=== PATIENT | female | born 1995 | race Two or more races ===

== ENCOUNTER 2020-08-13 18:19 | Inpatient (IN) | payer MEDICAID ==
[~2020-08-13] VITALS: Ht 160 cm; Wt 53.2 kg
[2020-08-13] MEDS ORDERED: ALBU8HFA IH (18:26)
[2020-08-13] MEDS ORDERED: ARIP10TA38 PO (18:27)
[2020-08-13 19:53] LABS: BASOPHILS % (AUTO) 0.3 % (0.0-2.0); EOSINOPHILS % (AUTO) 0.4 % (1.0-6.0); HEMATOCRIT 38.4 % (36-46); HEMOGLOBIN 12.9 g/dL (12.0-16.0); LYMPHOCYTES # (AUTO) 1.9 K/uL (1.0-4.8); LYMPHOCYTES % (AUTO) 21.9 % (22.0-44.0); MEAN CORPUSCULAR HGB CONC 33.5 G/dL (31.0-37.0); MEAN CORPUSCULAR VOLUME 90 fL (80-100); MONOCYTES # (AUTO) 0.4 K/uL (0.1-1.0); NEUTROPHILS # (AUTO) 6.4 K/uL (1.8-7.7); NEUTROPHILS % (AUTO) 72.4 % (40.0-70.0); PLATELET COUNT (AUTO) 331 K/uL (150-450); RED BLOOD CELL COUNT(AUTO) 4.28 MIL/uL (4.00-5.20); RED CELL DISTRIBUTION WIDTH 12.3 % (11.5-14.5)
[2020-08-13 20:02] LABS: ANION GAP 7 mmol/L (8-16); CALCIUM, TOTAL 9.4 mg/dL (8.8-10.5); CARBON DIOXIDE 28 mmol/L (22-29); CHLORIDE 102 mmol/L (98-107); CREATININE 0.79 mg/dL (0.60-1.30); GLOMERULAR FILTR. RATE CALC > 60 mL/min (>60); GLUCOSE,RANDOM 107 mg/dL (70-110); POTASSIUM 3.8 mmol/L (3.5-5.1); SODIUM SERUM 137 mmol/L (136-145); UREA NITROGEN, BLOOD 19 mg/dL (7-18)
[2020-08-13 20:15] LABS: ALANINE AMINOTRANSFERASE 21 U/L (12-78); ALBUMIN 4.2 g/dL (3.4-5.0); ALKALINE PHOSPHATASE 74 U/L (46-116); ASPARTATE AMINOTRANSFERASE 16 U/L (15-37); BILIRUBIN,TOTAL 0.7 mg/dL (0.1-1.0); HCG,QUANTITATIVE < 1 mIU/mL (0-6); TOTAL PROTEIN, SERUM 8.5 g/dL (6.4-8.2)
[2020-08-14] MEDS ORDERED: HALOPERIDOL LACTATE 5 MG/ML VIAL IM ONE (01:15)
[2020-08-14] MEDS ORDERED: DiphenhydrAMINE HCL 50 MG/ML VIAL IM ONE (01:15)
[2020-08-14] MEDS ORDERED: LORazepam 2 MG/ML VIAL IM ONE (01:15)
[2020-08-14 04:18] LABS: COVID AG,FIA SOURCE NASOPHARYNGEAL
[2020-08-14] MEDS ORDERED: ACETAMINOPHEN 325 MG TABLET PO PRN (07:45)
[2020-08-14] MEDS ORDERED: MAGNESIUM HYDROXIDE SUSPENSION 30 ML UDCUP PO PRN (07:45)
[2020-08-14] MEDS ORDERED: ALBUTEROL SULFATE HFA 90 MCG/PUFF 8 GM INHALER IH PRN (07:45)
[2020-08-14] MEDS ORDERED: ONDANSETRON HCL 4 MG TABLET PO PRN (07:45)
[2020-08-14] MEDS ORDERED: DOCUSATE SODIUM 100 MG CAPSULE PO PRN (07:45)
[2020-08-14] MEDS ORDERED: LOPERAMIDE HCL 2 MG CAPSULE PO PRN (07:45)
[2020-08-14] MEDS ORDERED: MAG HYDROX/AL HYDROX/SIMETH ES 30 ML SUSPENSION UDCUP PO PRN (07:45)
[2020-08-14] MEDS ORDERED: CloNIDine HCL 0.1 MG TABLET PO PRN (07:45)
[2020-08-14] MEDS ORDERED: NICOTINE 14 MG/24 HOUR PATCH TD PRN (07:45)
[2020-08-14] MEDS ORDERED: GuaiFENesin/D-METHORPHAN [SUGAR-FREE] 200-20MG/10 ML SYRUP UDCUP PO PRN (07:45)
[2020-08-14] MEDS ORDERED: IBUPROFEN 400 MG TABLET PO PRN (07:45)
[2020-08-14 10:00] VITALS: BP 98/63
[2020-08-14 10:17] VITALS: BP 98/63
[2020-08-14 16:22] VITALS: BP 105/72
[2020-08-14] MEDS: LORazepam 2 MG TABLET PO PRN (17:08)
[2020-08-15 04:37] VITALS: BP 105/70
[2020-08-15 08:34] VITALS: BP 110/74
[2020-08-15] MEDS: ARIPiprazole 10 MG TABLET PO SCH (11:00)
[2020-08-15 16:05] VITALS: BP 105/58
[2020-08-16 00:20] VITALS: BP 129/85
[2020-08-16] MEDS: ZOLPIDEM TARTRATE 10 MG TABLET PO PRN (00:24)
[2020-08-16] MEDS: LORazepam 2 MG TABLET PO PRN ×2 (00:24→18:19)
[2020-08-16 08:23] VITALS: BP 123/85
[2020-08-16] MEDS: ARIPiprazole 10 MG TABLET PO SCH (09:00)
[2020-08-16] MEDS: THIAMINE 100 MG TABLET PO SCH (09:00)
[2020-08-16] MEDS: MULTIVITAMINS WITH MINERALS, THERAPEUTIC TABLET PO SCH (09:00)
[2020-08-16] MEDS ORDERED: ARIPiprazole 10 MG TABLET PO SCH (11:00)
[2020-08-16 16:10] VITALS: BP 138/60
[2020-08-17 01:32] VITALS: BP 139/81
[2020-08-17] MEDS: ARIPiprazole 10 MG TABLET PO SCH (08:19)
[2020-08-17] MEDS: THIAMINE 100 MG TABLET PO SCH (08:20)
[2020-08-17] MEDS: MULTIVITAMINS WITH MINERALS, THERAPEUTIC TABLET PO SCH (08:20)
[2020-08-17 08:38] VITALS: BP 106/70
[2020-08-17 16:14] VITALS: BP 138/69
[2020-08-18 01:28] VITALS: BP 117/76
[2020-08-18 08:10] VITALS: BP 109/80
[2020-08-18] MEDS: ARIPiprazole 10 MG TABLET PO SCH (08:11)
[2020-08-18] MEDS: MULTIVITAMINS WITH MINERALS, THERAPEUTIC TABLET PO SCH (08:12)
[2020-08-18] MEDS: THIAMINE 100 MG TABLET PO SCH (08:12)
[2020-08-18 16:02] VITALS: BP 120/74
[2020-08-19] VITALS: BP 116/51
[2020-08-19 08:04] VITALS: BP 110/66
[2020-08-19 08:23] LABS: COVID AG,FIA SOURCE NASOPHARYNGEAL
[2020-08-19] MEDS: THIAMINE 100 MG TABLET PO SCH (09:00)
[2020-08-19] MEDS: ARIPiprazole 10 MG TABLET PO SCH ×2 (09:00→12:05)
[2020-08-19] MEDS: MULTIVITAMINS WITH MINERALS, THERAPEUTIC TABLET PO SCH (10:09)
[2020-08-19] MEDS: LORazepam 2 MG TABLET PO PRN (12:02)
[2020-08-19 16:05] VITALS: BP 109/66
[2020-08-20] VITALS: BP 110/67
[2020-08-20 08:18] VITALS: BP 109/73
[2020-08-20] MEDS: THIAMINE 100 MG TABLET PO SCH ×2 (09:00→09:26)
[2020-08-20] MEDS: ARIPiprazole 10 MG TABLET PO SCH ×2 (09:00→09:26)
[2020-08-20] MEDS: MULTIVITAMINS WITH MINERALS, THERAPEUTIC TABLET PO SCH ×2 (09:00→09:26)
[2020-08-20 16:10] VITALS: BP 110/83
[2020-08-21 00:46] VITALS: BP 110/80
[2020-08-21] MEDS: LORazepam 2 MG TABLET PO PRN (00:55)
[2020-08-21] MEDS: ZOLPIDEM TARTRATE 10 MG TABLET PO PRN (00:55)
[2020-08-21 08:29] VITALS: BP 108/74
[2020-08-21] MEDS: ARIPiprazole 10 MG TABLET PO SCH (09:00)
[2020-08-21] MEDS: THIAMINE 100 MG TABLET PO SCH (09:00)
[2020-08-21] MEDS: MULTIVITAMINS WITH MINERALS, THERAPEUTIC TABLET PO SCH (09:00)
[2020-08-21 16:26] VITALS: BP 100/60
[2020-08-22 02:01] VITALS: BP 111/62
[2020-08-22] MEDS: LORazepam 2 MG TABLET PO PRN (02:10)
[2020-08-22 08:13] LABS: BASOPHILS % (AUTO) 0.2 % (0.0-2.0); EOSINOPHILS % (AUTO) 1.8 % (1.0-6.0); HEMATOCRIT 39.1 % (36-46); LYMPHOCYTES # (AUTO) 1.8 K/uL (1.0-4.8); LYMPHOCYTES % (AUTO) 23.8 % (22.0-44.0); MEAN CORPUSCULAR HGB CONC 33.2 G/dL (31.0-37.0); MEAN CORPUSCULAR VOLUME 90 fL (80-100); MONOCYTES # (AUTO) 0.4 K/uL (0.1-1.0); MONOCYTES % (AUTO) 5.3 % (2.0-9.0); NEUTROPHILS # (AUTO) 5.3 K/uL (1.8-7.7); NEUTROPHILS % (AUTO) 68.9 % (40.0-70.0); PLATELET COUNT (AUTO) 319 K/uL (150-450); RED BLOOD CELL COUNT(AUTO) 4.32 MIL/uL (4.00-5.20); RED CELL DISTRIBUTION WIDTH 12.5 % (11.5-14.5)
[2020-08-22 08:15] VITALS: BP 108/70
[2020-08-22 08:38] LABS: CHOL/HDL RATIO 2.3 (3.9-5.7); FREE T4 (FREE THYROXINE) 1.37 ng/dL (0.76-1.46); MAGNESIUM 2.1 mg/dL (1.80-2.40); PHOSPHORUS 4.5 mg/dL (2.5-4.9); THYROID STIMULATING HORMONE 1.99 uIU/mL (0.36-3.74)
[2020-08-22 08:40] LABS: HEMOGLOBIN A1C 5.1 % (3.8-5.6)
[2020-08-22] MEDS: THIAMINE 100 MG TABLET PO SCH (09:00)
[2020-08-22] MEDS: MULTIVITAMINS WITH MINERALS, THERAPEUTIC TABLET PO SCH (09:00)
[2020-08-22] MEDS: ARIPiprazole 10 MG TABLET PO SCH (09:51)
[2020-08-22 16:19] VITALS: BP 109/74
[2020-08-23 04:13] VITALS: BP 123/82
[2020-08-23 08:09] VITALS: BP 112/84
[2020-08-23] MEDS: ARIPiprazole 10 MG TABLET PO SCH (09:00)
[2020-08-23] MEDS: MULTIVITAMINS WITH MINERALS, THERAPEUTIC TABLET PO SCH (09:00)
[2020-08-23] MEDS: THIAMINE 100 MG TABLET PO SCH (09:00)
[2020-08-23 16:08] VITALS: BP 118/69
[2020-08-24 08:10] VITALS: BP 116/78
[2020-08-24] MEDS: LORazepam 2 MG TABLET PO PRN (08:50)
[2020-08-24] MEDS: THIAMINE 100 MG TABLET PO SCH (08:50)
[2020-08-24] MEDS: MULTIVITAMINS WITH MINERALS, THERAPEUTIC TABLET PO SCH (08:54)
[2020-08-24] MEDS: ARIPiprazole 10 MG TABLET PO SCH (08:54)
[2020-08-24 16:20] VITALS: BP 101/69
[2020-08-25 00:16] VITALS: BP 111/65
[2020-08-25 07:25] LABS: APPEARANCE,URINE CLEAR (CLEAR); BILIRUBIN,URINE NEGATIVE (NEGATIVE); GLUCOSE, URINE (UA) NEGATIVE (NEGATIVE); KETONES,URINE >=80 mg/dL (NEGATIVE); LEUKOCYTE ESTERASE ,URINE NEGATIVE (NEGATIVE); NITRATE,URINE NEGATIVE (NEGATIVE); OCCULT BLOOD,URINE SMALL (NEGATIVE); PROTEIN,URINE TRACE (NEGATIVE); UROBILINOGEN,URINE 0.2 mg/dL (<=1.0)
[2020-08-25 07:46] LABS: SQUAMOUS EPITHELIAL CELL,UR Rare /LPF (None Seen)
[2020-08-25 07:47] LABS: WBC,URINE 0-2 /HPF (0-5)
[2020-08-25 07:48] LABS: BACTERIA,URINE None Seen /HPF (None Seen); CALCIUM OXALATE CRYSTALS,UR Few /LPF (None Seen)
[2020-08-25] MEDS: THIAMINE 100 MG TABLET PO SCH ×2 (08:30→09:00)
[2020-08-25] MEDS: ARIPiprazole 10 MG TABLET PO SCH ×2 (08:30→09:00)
[2020-08-25] MEDS: MULTIVITAMINS WITH MINERALS, THERAPEUTIC TABLET PO SCH ×2 (08:30→09:00)
[2020-08-25 10:01] VITALS: BP 114/62
[2020-08-25 16:14] VITALS: BP 118/68
[2020-08-26 00:23] VITALS: BP 103/74
[2020-08-26 07:51] LABS: COVID AG,FIA SOURCE NASOPHARYNGEAL
[2020-08-26 08:05] VITALS: BP 102/65
[2020-08-26] MEDS: MULTIVITAMINS WITH MINERALS, THERAPEUTIC TABLET PO SCH (09:00)
[2020-08-26] MEDS: ARIPiprazole 10 MG TABLET PO SCH (09:00)
[2020-08-26] MEDS: THIAMINE 100 MG TABLET PO SCH (09:00)
[2020-08-26 16:18] VITALS: BP 131/85
[2020-08-27 01:55] VITALS: BP 121/82
[2020-08-27 08:40] VITALS: BP_SYST 120
[2020-08-27] MEDS: ARIPiprazole 10 MG TABLET PO SCH (08:40)
[2020-08-27] MEDS: THIAMINE 100 MG TABLET PO SCH (08:41)
[2020-08-27] MEDS: MEGESTROL ACETATE 400 MG/10 ML SUSPENSION UDCUP PO SCH (08:41)
[2020-08-27] MEDS: MULTIVITAMINS WITH MINERALS, THERAPEUTIC TABLET PO SCH (08:41)
[2020-08-27 16:14] VITALS: BP 127/86
[2020-08-28 01:37] VITALS: BP 118/82
[2020-08-28] MEDS: ZOLPIDEM TARTRATE 10 MG TABLET PO PRN (02:46)
[2020-08-28] MEDS: LORazepam 2 MG TABLET PO PRN ×3 (04:09→19:28)
[2020-08-28 08:05] VITALS: BP 101/68
[2020-08-28] MEDS: MULTIVITAMINS WITH MINERALS, THERAPEUTIC TABLET PO SCH (09:00)
[2020-08-28] MEDS: THIAMINE 100 MG TABLET PO SCH (09:00)
[2020-08-28] MEDS: ARIPiprazole 10 MG TABLET PO SCH (09:21)
[2020-08-28] MEDS: MEGESTROL ACETATE 400 MG/10 ML SUSPENSION UDCUP PO SCH (09:21)
[2020-08-28 16:10] VITALS: BP 100/82
[2020-08-29 06:43] VITALS: BP 108/77
[2020-08-29 08:11] VITALS: BP 107/69
[2020-08-29] MEDS: MULTIVITAMINS WITH MINERALS, THERAPEUTIC TABLET PO SCH (09:00)
[2020-08-29] MEDS: THIAMINE 100 MG TABLET PO SCH (09:00)
[2020-08-29] MEDS: ARIPiprazole 10 MG TABLET PO SCH (09:00)
[2020-08-29] MEDS: MEGESTROL ACETATE 400 MG/10 ML SUSPENSION UDCUP PO SCH (09:00)
[2020-08-29 16:10] VITALS: BP 114/65
[2020-08-29] MEDS: LORazepam 2 MG TABLET PO PRN (22:48)
[2020-08-30 06:29] VITALS: BP 102/65
[2020-08-30 08:25] VITALS: BP 103/60
[2020-08-30] MEDS: ARIPiprazole 10 MG TABLET PO SCH (08:51)
[2020-08-30] MEDS: MULTIVITAMINS WITH MINERALS, THERAPEUTIC TABLET PO SCH (09:00)
[2020-08-30] MEDS: THIAMINE 100 MG TABLET PO SCH (09:00)
[2020-08-30] MEDS: MEGESTROL ACETATE 400 MG/10 ML SUSPENSION UDCUP PO SCH (09:00)
[2020-08-30] MEDS: PETROLATUM,WHITE 28 GM JELLY TP PRN (13:40)
[2020-08-30 16:21] VITALS: BP 104/72
[2020-08-30] MEDS: LORazepam 2 MG TABLET PO PRN (20:37)
[2020-08-31 01:14] VITALS: BP 114/67
[2020-08-31 08:15] VITALS: BP 118/73
[2020-08-31 08:29] LABS: APPEARANCE,URINE TURBID (CLEAR); GLUCOSE, URINE (UA) NEGATIVE (NEGATIVE); KETONES,URINE TRACE mg/dL (NEGATIVE); NITRATE,URINE NEGATIVE (NEGATIVE); OCCULT BLOOD,URINE NEGATIVE (NEGATIVE); PH,URINE 5.5 (5.0-8.0); PROTEIN,URINE NEGATIVE (NEGATIVE); UROBILINOGEN,URINE 0.2 mg/dL (<=1.0)
[2020-08-31 08:38] LABS: BILIRUBIN,URINE PRELIM. POSITIVE (NEGATIVE)
[2020-08-31 08:39] LABS: BACTERIA,URINE None Seen /HPF (None Seen); LEUKOCYTE ESTERASE ,URINE SMALL (NEGATIVE); RBC,URINE None Seen /HPF (0-2)
[2020-08-31 08:40] LABS: AMORPHOUS SEDIMENT,UR Many /LPF (None Seen); CALCIUM OXALATE CRYSTALS,UR Rare /LPF (None Seen); SQUAMOUS EPITHELIAL CELL,UR Moderate /LPF (None Seen)
[2020-08-31] MEDS: MULTIVITAMINS WITH MINERALS, THERAPEUTIC TABLET PO SCH (09:00)
[2020-08-31] MEDS: THIAMINE 100 MG TABLET PO SCH (09:06)
[2020-08-31] MEDS: ARIPiprazole 10 MG TABLET PO SCH (09:06)
[2020-08-31] MEDS: MEGESTROL ACETATE 400 MG/10 ML SUSPENSION UDCUP PO SCH (09:06)
[2020-08-31] MEDS: CEPHALEXIN MONOHYDRATE 250 MG CAPSULE PO SCH ×2 (12:16→17:41)
[2020-08-31 16:20] VITALS: BP 110/74
[2020-09-01 06:18] VITALS: BP 123/88
[2020-09-01 07:51] LABS: BASOPHILS % (AUTO) 0.1 % (0.0-2.0); EOSINOPHILS % (AUTO) 1.8 % (1.0-6.0); HEMATOCRIT 38.2 % (36-46); HEMOGLOBIN 12.4 g/dL (12.0-16.0); LYMPHOCYTES # (AUTO) 2.2 K/uL (1.0-4.8); LYMPHOCYTES % (AUTO) 25.2 % (22.0-44.0); MEAN CORPUSCULAR HEMOGLOBIN 29.7 pg (26.0-34.0); MEAN CORPUSCULAR HGB CONC 32.6 G/dL (31.0-37.0); MEAN CORPUSCULAR VOLUME 91 fL (80-100); MONOCYTES # (AUTO) 0.5 K/uL (0.1-1.0); MONOCYTES % (AUTO) 6.3 % (2.0-9.0); NEUTROPHILS # (AUTO) 5.7 K/uL (1.8-7.7); NEUTROPHILS % (AUTO) 66.6 % (40.0-70.0); PLATELET COUNT (AUTO) 239 K/uL (150-450); RED BLOOD CELL COUNT(AUTO) 4.19 MIL/uL (4.00-5.20); RED CELL DISTRIBUTION WIDTH 12.3 % (11.5-14.5)
[2020-09-01 08:03] LABS: COVID AG,FIA SOURCE NASOPHARYNGEAL
[2020-09-01 08:10] LABS: ANION GAP 7 mmol/L (8-16); CALCIUM, TOTAL 8.6 mg/dL (8.8-10.5); CARBON DIOXIDE 27 mmol/L (22-29); CHLORIDE 105 mmol/L (98-107); CREATININE 0.61 mg/dL (0.60-1.30); GLOMERULAR FILTR. RATE CALC > 60 mL/min (>60); GLUCOSE,RANDOM 88 mg/dL (70-110); PHOSPHORUS 3.3 mg/dL (2.5-4.9); POTASSIUM 3.8 mmol/L (3.5-5.1); SODIUM SERUM 139 mmol/L (136-145); UREA NITROGEN, BLOOD 13 mg/dL (7-18)
[2020-09-01 08:20] VITALS: BP 121/76
[2020-09-01] MEDS: CEPHALEXIN MONOHYDRATE 250 MG CAPSULE PO SCH ×3 (08:47→17:19)
[2020-09-01] MEDS: MEGESTROL ACETATE 400 MG/10 ML SUSPENSION UDCUP PO SCH (08:47)
[2020-09-01] MEDS: ARIPiprazole 10 MG TABLET PO SCH (08:47)
[2020-09-01] MEDS: MULTIVITAMINS WITH MINERALS, THERAPEUTIC TABLET PO SCH (08:56)
[2020-09-01] MEDS: THIAMINE 100 MG TABLET PO SCH (08:56)
[2020-09-01 16:15] VITALS: BP 103/69
[2020-09-02 00:30] VITALS: BP 112/62
[2020-09-02 08:13] VITALS: BP 106/70
[2020-09-02] MEDS: CEPHALEXIN MONOHYDRATE 250 MG CAPSULE PO SCH ×3 (09:17→16:58)
[2020-09-02] MEDS: MULTIVITAMINS WITH MINERALS, THERAPEUTIC TABLET PO SCH (09:17)
[2020-09-02] MEDS: MEGESTROL ACETATE 400 MG/10 ML SUSPENSION UDCUP PO SCH (09:17)
[2020-09-02] MEDS: THIAMINE 100 MG TABLET PO SCH (09:17)
[2020-09-02] MEDS: ARIPiprazole 10 MG TABLET PO SCH (09:17)
[2020-09-02 16:27] VITALS: BP 130/87
[2020-09-03] MEDS: ZOLPIDEM TARTRATE 10 MG TABLET PO PRN (00:22)
[2020-09-03 05:23] VITALS: BP 122/73
[2020-09-03 08:16] VITALS: BP 101/71
[2020-09-03] MEDS: MULTIVITAMINS WITH MINERALS, THERAPEUTIC TABLET PO SCH (08:38)
[2020-09-03] MEDS: THIAMINE 100 MG TABLET PO SCH (08:38)
[2020-09-03] MEDS: MEGESTROL ACETATE 400 MG/10 ML SUSPENSION UDCUP PO SCH (08:38)
[2020-09-03] MEDS: ARIPiprazole 10 MG TABLET PO SCH (08:38)
[2020-09-03] MEDS: CEPHALEXIN MONOHYDRATE 250 MG CAPSULE PO SCH ×3 (08:38→16:05)
[2020-09-03 16:39] VITALS: BP 112/64
[2020-09-04 00:18] VITALS: BP 123/72
[2020-09-04] MEDS: ARIPiprazole 10 MG TABLET PO SCH (08:47)
[2020-09-04] MEDS: MULTIVITAMINS WITH MINERALS, THERAPEUTIC TABLET PO SCH (08:47)
[2020-09-04] MEDS: THIAMINE 100 MG TABLET PO SCH (08:47)
[2020-09-04 09:33] VITALS: BP 137/94
[2020-09-04] MEDS: CEPHALEXIN MONOHYDRATE 250 MG CAPSULE PO SCH ×3 (09:39→16:56)
[2020-09-04] MEDS: MEGESTROL ACETATE 400 MG/10 ML SUSPENSION UDCUP PO SCH (09:39)
[2020-09-04 16:35] VITALS: BP 118/82
[2020-09-04] MEDS: ZOLPIDEM TARTRATE 10 MG TABLET PO PRN (20:30)
[2020-09-05 05:13] VITALS: BP 122/74
[2020-09-05] MEDS: MULTIVITAMINS WITH MINERALS, THERAPEUTIC TABLET PO SCH (08:05)
[2020-09-05] MEDS: CEPHALEXIN MONOHYDRATE 250 MG CAPSULE PO SCH (08:05)
[2020-09-05] MEDS: ARIPiprazole 10 MG TABLET PO SCH (08:06)
[2020-09-05] MEDS: THIAMINE 100 MG TABLET PO SCH (08:06)
[2020-09-05] MEDS: MEGESTROL ACETATE 400 MG/10 ML SUSPENSION UDCUP PO SCH (08:06)
[2020-09-05 08:33] VITALS: BP 106/69
[2020-09-05 20:07] VITALS: BP 121/73
[2020-09-06 00:37] VITALS: BP 123/74
[2020-09-06] MEDS: MEGESTROL ACETATE 400 MG/10 ML SUSPENSION UDCUP PO SCH (08:04)
[2020-09-06] MEDS: ARIPiprazole 10 MG TABLET PO SCH (08:04)
[2020-09-06 08:20] VITALS: BP 140/73
[2020-09-06] MEDS: MULTIVITAMINS WITH MINERALS, THERAPEUTIC TABLET PO SCH (09:00)
[2020-09-06] MEDS: THIAMINE 100 MG TABLET PO SCH (09:00)
[2020-09-06 16:16] VITALS: BP 123/83
[2020-09-07 00:48] VITALS: BP 120/75
[2020-09-07 08:11] VITALS: BP 123/78
[2020-09-07] MEDS: THIAMINE 100 MG TABLET PO SCH (08:55)
[2020-09-07] MEDS: ARIPiprazole 10 MG TABLET PO SCH (08:55)
[2020-09-07] MEDS: MULTIVITAMINS WITH MINERALS, THERAPEUTIC TABLET PO SCH (08:55)
[2020-09-07] MEDS: MEGESTROL ACETATE 400 MG/10 ML SUSPENSION UDCUP PO SCH (08:56)
[2020-09-07 16:52] VITALS: BP 119/84
[2020-09-07] MEDS: ZOLPIDEM TARTRATE 10 MG TABLET PO PRN (23:04)
[2020-09-08 00:33] VITALS: BP 117/66
[2020-09-08 07:40] LABS: COVID AG,FIA SOURCE NASOPHARYNGEAL
[2020-09-08 08:00] VITALS: BP 119/69
[2020-09-08] MEDS: MEGESTROL ACETATE 400 MG/10 ML SUSPENSION UDCUP PO SCH (08:50)
[2020-09-08] MEDS: ARIPiprazole 10 MG TABLET PO SCH (08:51)
[2020-09-08] MEDS: MULTIVITAMINS WITH MINERALS, THERAPEUTIC TABLET PO SCH (09:00)
[2020-09-08] MEDS: THIAMINE 100 MG TABLET PO SCH (09:00)
[2020-09-08 16:12] VITALS: BP 134/80
[2020-09-08] MEDS: ZOLPIDEM TARTRATE 10 MG TABLET PO PRN (20:30)
[2020-09-09 00:14] VITALS: BP 120/83
[2020-09-09 08:07] VITALS: BP 115/72
[2020-09-09] MEDS: MEGESTROL ACETATE 400 MG/10 ML SUSPENSION UDCUP PO SCH (08:51)
[2020-09-09] MEDS: ARIPiprazole 10 MG TABLET PO SCH (08:51)
[2020-09-09] MEDS: THIAMINE 100 MG TABLET PO SCH ×2 (08:51→09:00)
[2020-09-09] MEDS: MULTIVITAMINS WITH MINERALS, THERAPEUTIC TABLET PO SCH (08:51)
[2020-09-09 16:19] VITALS: BP 137/90
[2020-09-09] MEDS: ZOLPIDEM TARTRATE 10 MG TABLET PO PRN (20:52)
[2020-09-10 02:17] VITALS: BP 124/76
[2020-09-10] MEDS: LORazepam 2 MG TABLET PO PRN ×2 (02:29→16:43)
[2020-09-10] MEDS: HALOPERIDOL 5 MG TABLET PO PRN ×2 (04:15→16:43)
[2020-09-10] MEDS: MULTIVITAMINS WITH MINERALS, THERAPEUTIC TABLET PO SCH (09:00)
[2020-09-10] MEDS: THIAMINE 100 MG TABLET PO SCH (09:00)
[2020-09-10] MEDS: ARIPiprazole 10 MG TABLET PO SCH (09:17)
[2020-09-10] MEDS: MEGESTROL ACETATE 400 MG/10 ML SUSPENSION UDCUP PO SCH (09:18)
[2020-09-10 10:41] VITALS: BP 111/64
[2020-09-10 16:35] VITALS: BP 130/72
[2020-09-11 06:24] VITALS: BP 91/60
[2020-09-11 08:45] VITALS: BP 122/77
[2020-09-11] MEDS: MULTIVITAMINS WITH MINERALS, THERAPEUTIC TABLET PO SCH (09:22)
[2020-09-11] MEDS: MEGESTROL ACETATE 400 MG/10 ML SUSPENSION UDCUP PO SCH (09:22)
[2020-09-11] MEDS: THIAMINE 100 MG TABLET PO SCH (09:22)
[2020-09-11] MEDS: ARIPiprazole 10 MG TABLET PO SCH (09:22)
[2020-09-11 16:15] VITALS: BP 116/74
[2020-09-12 00:54] VITALS: BP 122/67
[2020-09-12] MEDS: THIAMINE 100 MG TABLET PO SCH (08:08)
[2020-09-12] MEDS: ARIPiprazole 10 MG TABLET PO SCH (08:08)
[2020-09-12] MEDS: MULTIVITAMINS WITH MINERALS, THERAPEUTIC TABLET PO SCH (08:08)
[2020-09-12] MEDS: MEGESTROL ACETATE 400 MG/10 ML SUSPENSION UDCUP PO SCH (08:09)
[2020-09-12 08:23] VITALS: BP 109/69
[2020-09-12 16:28] VITALS: BP 114/81
[2020-09-12] MEDS: ZOLPIDEM TARTRATE 10 MG TABLET PO PRN (20:48)
[2020-09-13 01:01] VITALS: BP 117/68
[2020-09-13] MEDS: MULTIVITAMINS WITH MINERALS, THERAPEUTIC TABLET PO SCH (08:10)
[2020-09-13] MEDS: ARIPiprazole 10 MG TABLET PO SCH (08:10)
[2020-09-13] MEDS: THIAMINE 100 MG TABLET PO SCH (08:10)
[2020-09-13 08:29] VITALS: BP 109/73
[2020-09-13] MEDS: MEGESTROL ACETATE 400 MG/10 ML SUSPENSION UDCUP PO SCH (09:00)
[2020-09-13 16:03] VITALS: BP 124/76
[2020-09-14 01:48] VITALS: BP 119/70
[2020-09-14 08:15] VITALS: BP 114/66
[2020-09-14] MEDS: MULTIVITAMINS WITH MINERALS, THERAPEUTIC TABLET PO SCH (09:37)
[2020-09-14] MEDS: MEGESTROL ACETATE 400 MG/10 ML SUSPENSION UDCUP PO SCH (09:38)
[2020-09-14] MEDS: ARIPiprazole 10 MG TABLET PO SCH (09:38)
[2020-09-14] MEDS: THIAMINE 100 MG TABLET PO SCH (09:38)
[2020-09-14 16:04] VITALS: BP 114/75
[2020-09-14] MEDS: ZOLPIDEM TARTRATE 10 MG TABLET PO PRN (21:01)
[2020-09-15 01:42] VITALS: BP 110/68
[2020-09-15] MEDS: ARIPiprazole 10 MG TABLET PO SCH (08:27)
[2020-09-15] MEDS: MEGESTROL ACETATE 400 MG/10 ML SUSPENSION UDCUP PO SCH (08:28)
[2020-09-15] MEDS: MULTIVITAMINS WITH MINERALS, THERAPEUTIC TABLET PO SCH (08:34)
[2020-09-15] MEDS: THIAMINE 100 MG TABLET PO SCH (08:35)
[2020-09-15 09:01] VITALS: BP 113/74
[2020-09-15 16:06] VITALS: BP 105/70
[2020-09-16 01:24] VITALS: BP 111/74
[2020-09-16 08:07] VITALS: BP 112/72
[2020-09-16] MEDS: THIAMINE 100 MG TABLET PO SCH (09:56)
[2020-09-16] MEDS: ARIPiprazole 10 MG TABLET PO SCH (09:56)
[2020-09-16] MEDS: MEGESTROL ACETATE 400 MG/10 ML SUSPENSION UDCUP PO SCH (09:56)
[2020-09-16] MEDS: MULTIVITAMINS WITH MINERALS, THERAPEUTIC TABLET PO SCH (09:56)
[2020-09-16 16:06] VITALS: BP 111/76
[2020-09-17 00:32] VITALS: BP 110/73
[2020-09-17 08:09] VITALS: BP 121/72
[2020-09-17] MEDS: ARIPiprazole 10 MG TABLET PO SCH (09:26)
[2020-09-17] MEDS: MULTIVITAMINS WITH MINERALS, THERAPEUTIC TABLET PO SCH (09:26)
[2020-09-17] MEDS: THIAMINE 100 MG TABLET PO SCH (09:26)
[2020-09-17] MEDS: MEGESTROL ACETATE 400 MG/10 ML SUSPENSION UDCUP PO SCH (09:26)
[2020-09-17 10:30] LABS: COVID AG,FIA SOURCE NASOPHARYNGEAL
[2020-09-17 16:07] VITALS: BP 110/64
[2020-09-18 00:55] VITALS: BP 113/68
[2020-09-18] MEDS: MEGESTROL ACETATE 400 MG/10 ML SUSPENSION UDCUP PO SCH (08:06)
[2020-09-18] MEDS: ARIPiprazole 10 MG TABLET PO SCH (08:06)
[2020-09-18] MEDS: THIAMINE 100 MG TABLET PO SCH (08:06)
[2020-09-18] MEDS: MULTIVITAMINS WITH MINERALS, THERAPEUTIC TABLET PO SCH (08:10)
[2020-09-18 08:15] VITALS: BP 125/77
[2020-09-18 16:09] VITALS: BP 110/73
[2020-09-18] MEDS: ZOLPIDEM TARTRATE 10 MG TABLET PO PRN (20:55)
[2020-09-19 00:52] VITALS: BP 123/72
[2020-09-19 08:26] VITALS: BP 119/73
[2020-09-19] MEDS: MEGESTROL ACETATE 400 MG/10 ML SUSPENSION UDCUP PO SCH (09:34)
[2020-09-19] MEDS: THIAMINE 100 MG TABLET PO SCH (09:34)
[2020-09-19] MEDS: MULTIVITAMINS WITH MINERALS, THERAPEUTIC TABLET PO SCH (09:34)
[2020-09-19] MEDS: ARIPiprazole 10 MG TABLET PO SCH (09:34)
[2020-09-19 16:13] VITALS: BP 115/68
[2020-09-20] MEDS: ZOLPIDEM TARTRATE 10 MG TABLET PO PRN ×2 (00:55→23:12)
[2020-09-20 01:28] VITALS: BP 125/75
[2020-09-20 08:05] VITALS: BP 109/72
[2020-09-20] MEDS: MULTIVITAMINS WITH MINERALS, THERAPEUTIC TABLET PO SCH (09:00)
[2020-09-20] MEDS: ARIPiprazole 10 MG TABLET PO SCH (09:00)
[2020-09-20] MEDS: MEGESTROL ACETATE 400 MG/10 ML SUSPENSION UDCUP PO SCH (09:00)
[2020-09-20] MEDS: THIAMINE 100 MG TABLET PO SCH (09:00)
[2020-09-20 16:03] VITALS: BP 116/76
[2020-09-21 01:00] VITALS: BP 125/79
[2020-09-21 08:40] VITALS: BP 111/72
[2020-09-21] MEDS: ARIPiprazole 10 MG TABLET PO SCH (09:32)
[2020-09-21] MEDS: MULTIVITAMINS WITH MINERALS, THERAPEUTIC TABLET PO SCH (09:32)
[2020-09-21] MEDS: THIAMINE 100 MG TABLET PO SCH (09:32)
[2020-09-21] MEDS: MEGESTROL ACETATE 400 MG/10 ML SUSPENSION UDCUP PO SCH (09:33)
[2020-09-21] MEDS: PETROLATUM,WHITE 28 GM JELLY TP PRN (14:43)
[2020-09-21 16:07] VITALS: BP 109/65
[2020-09-21] MEDS: ZOLPIDEM TARTRATE 10 MG TABLET PO PRN (21:01)
[2020-09-21] MEDS: LORazepam 2 MG TABLET PO PRN (23:40)
[2020-09-22 00:08] VITALS: BP 119/65
[2020-09-22 08:14] VITALS: BP 128/76
[2020-09-22] MEDS: MULTIVITAMINS WITH MINERALS, THERAPEUTIC TABLET PO SCH (09:34)
[2020-09-22] MEDS: THIAMINE 100 MG TABLET PO SCH (09:34)
[2020-09-22] MEDS: ARIPiprazole 10 MG TABLET PO SCH (09:34)
[2020-09-22] MEDS: MEGESTROL ACETATE 400 MG/10 ML SUSPENSION UDCUP PO SCH (09:34)
[2020-09-22 16:08] VITALS: BP 106/70
[2020-09-23 00:07] VITALS: BP 112/72
[2020-09-23 07:21] LABS: COVID AG,FIA SOURCE NASOPHARYNGEAL
[2020-09-23 08:19] VITALS: BP 109/73
[2020-09-23] MEDS: MEGESTROL ACETATE 400 MG/10 ML SUSPENSION UDCUP PO SCH (08:44)
[2020-09-23] MEDS: ARIPiprazole 10 MG TABLET PO SCH (08:45)
[2020-09-23] MEDS: THIAMINE 100 MG TABLET PO SCH (08:49)
[2020-09-23] MEDS: MULTIVITAMINS WITH MINERALS, THERAPEUTIC TABLET PO SCH (08:49)
[2020-09-23 16:07] VITALS: BP 119/79
[2020-09-24 00:08] VITALS: BP 117/68
[2020-09-24 08:49] VITALS: BP 116/73
[2020-09-24] MEDS: MULTIVITAMINS WITH MINERALS, THERAPEUTIC TABLET PO SCH (09:06)
[2020-09-24] MEDS: THIAMINE 100 MG TABLET PO SCH (09:06)
[2020-09-24] MEDS: ARIPiprazole 10 MG TABLET PO SCH (09:06)
[2020-09-24] MEDS: MEGESTROL ACETATE 400 MG/10 ML SUSPENSION UDCUP PO SCH (09:06)
[2020-09-24 16:12] VITALS: BP 108/67
[2020-09-25 00:06] VITALS: BP 114/68
[2020-09-25] MEDS: ZOLPIDEM TARTRATE 10 MG TABLET PO PRN (00:20)
[2020-09-25] MEDS: MULTIVITAMINS WITH MINERALS, THERAPEUTIC TABLET PO SCH (08:55)
[2020-09-25] MEDS: ARIPiprazole 10 MG TABLET PO SCH (08:55)
[2020-09-25] MEDS: MEGESTROL ACETATE 400 MG/10 ML SUSPENSION UDCUP PO SCH (08:55)
[2020-09-25] MEDS: THIAMINE 100 MG TABLET PO SCH (08:55)
[2020-09-25 09:15] VITALS: BP 105/75
[2020-09-25 16:06] VITALS: BP 122/75
[2020-09-26 03:56] VITALS: BP 110/78
[2020-09-26 08:36] VITALS: BP 126/83
[2020-09-26] MEDS: ARIPiprazole 10 MG TABLET PO SCH (10:02)
[2020-09-26] MEDS: MEGESTROL ACETATE 400 MG/10 ML SUSPENSION UDCUP PO SCH (10:02)
[2020-09-26] MEDS: MULTIVITAMINS WITH MINERALS, THERAPEUTIC TABLET PO SCH (10:02)
[2020-09-26] MEDS: THIAMINE 100 MG TABLET PO SCH (10:02)
[2020-09-26 16:15] VITALS: BP 128/76
[2020-09-27 06:10] VITALS: BP 110/77
[2020-09-27 08:13] VITALS: BP 112/68
[2020-09-27] MEDS: MEGESTROL ACETATE 400 MG/10 ML SUSPENSION UDCUP PO SCH (09:43)
[2020-09-27] MEDS: MULTIVITAMINS WITH MINERALS, THERAPEUTIC TABLET PO SCH (09:43)
[2020-09-27] MEDS: LORazepam 2 MG TABLET PO PRN (09:44)
[2020-09-27] MEDS: ARIPiprazole 10 MG TABLET PO SCH (09:44)
[2020-09-27] MEDS: THIAMINE 100 MG TABLET PO SCH (09:44)
[2020-09-27] MEDS ORDERED: ARIP10TA38 PO (11:35)
[2020-09-27] MEDS ORDERED: MEGE40TA8 PO (11:47)
[2020-09-27] MEDS ORDERED: MEGE40L PO (11:50)
== END 2020-09-27 15:30 | disposition home or self-care (01) | DRG 750 ==
LOC: EMS 18:19 → B2S 08-14 05:00 → 2WR 09-12 21:17 → B2S 09-12 21:18
PROVIDERS: ADMIT Psychiatry & Neurology Child & Adolescent Psychiatry; ATTEND Psychiatry & Neurology Child & Adolescent Psychiatry
DX: F20.9 Schizophrenia, unspecified (principal); I95.9 Hypotension, unspecified; E46 Unspecified protein-calorie malnutrition; Z20.822 Contact with and (suspected) exposure to COVID-19; F41.9 Anxiety disorder, unspecified; J45.909 Unspecified asthma, uncomplicated; N39.0 Urinary tract infection, site not specified; R32 Unspecified urinary incontinence; Z66 Do not resuscitate; Z79.899 Other long term (current) drug therapy; Z91.14 Patient's other noncompliance with medication regimen; Z59.0 Homelessness; Z81.8 Family history of other mental and behavioral disorders; Z91.19 Patient's noncompliance with other medical treatment and regimen; Z68.20 Body mass index [BMI] 20.0-20.9, adult
CPT/HCPCS: 80048; 80053; 80061; 81001; 83036; 83735; 84100; 84439; 84443; 84702; 85025; 87081; 99285; G0480; J1200; J1630; J2060